=== PATIENT | male | born 1930 | race Caucasian/White ===

== ENCOUNTER 2018-09-26 08:55 | Day surgery (SDC) | payer MEDICARE, BC ==
[~2018-09-26] VITALS: Ht 182.9 cm; Wt 107.5 kg
[2018-09-26 09:49] LABS: ANION GAP 16.3 mmol/L (8-16); CALCIUM 7.7 mg/dL (8.5-10.1); CARBON DIOXIDE 21.3 mmol/L (21.0-32.0); CREATININE - SERUM 5.1 mg/dL (0.6-1.3); POTASSIUM - SERUM 4.6 mmol/L (3.5-5.1)
[2018-09-26 09:50] LABS: BASOPHILS 0.5 % (0-2); HEMATOCRIT 27.5 % (42.0-54.0); HEMOGLOBIN 8.6 g/dL (13.5-17.5); IMMATURE GRANULOCYTES 0.2 % (0-5); LYMPHOCYTES 20.2 % (15-50); MCH 30.4 pg (26.0-34.0); MCHC 31.3 g/dL (31.0-37.0); MCV 97.2 fL (80.0-100.0); MEAN PLATELET VOLUME 10.4 fL (7.4-10.4); MONOCYTES 6.6 % (2-11); NEUTROPHILS 68.5 % (40-80); PLATELET COUNT 91 10x3/uL (130-400); RBC 2.83 10x6/uL (4.20-6.10); RDW 14.8 % (11.5-14.5); WBC 6.5 10x3/uL (4.8-10.8)
[2018-09-26] MEDS ORDERED: COREG25 MG PO (10:28)
[2018-09-26] MEDS ORDERED: OMNICEF300 MG PO (10:28)
[2018-09-26] MEDS ORDERED: ZOCOR10 MG PO (10:43)
[2018-09-26] MEDS ORDERED: BAYER CHEWABLE81 MG PO (10:44)
[2018-09-26] MEDS ORDERED: FLUTICASONE PRO16 GM NASAL (10:45)
[2018-09-26] MEDS ORDERED: NORVASC5 MG PO (10:46)
[2018-09-26] MEDS ORDERED: ATIVAN1 MG PO (10:47)
[2018-09-26] MEDS ORDERED: LEVOTHYROXINE50 MCG PO (10:48)
[2018-09-26] MEDS ORDERED: SODIUM BICARBO325 MG PO (10:49)
[2018-09-26] MEDS ORDERED: COZAAR50 MG PO (10:50)
[2018-09-26] MEDS ORDERED: FOLIC ACID1 MG PO (10:52)
[2018-09-26] MEDS ORDERED: FERROUS SULFAT325 MG PO (10:52)
[2018-09-26] MEDS ORDERED: METOLAZONE2.5 MG PO (10:52)
[2018-09-26] MEDS ORDERED: XANAX0.5 MG PO (10:53)
[2018-09-26] MEDS ORDERED: LASIX80 MG PO (10:54)
[2018-09-26 10:56] VITALS: BMI 32.1
[2018-09-26 11:06] LABS: APTT 29.4 SECONDS (22.8-39.4)
[2018-09-26 11:39] LABS: INR 1.03 (0.85-1.17); PROTIME 13.4 SECONDS (11.6-15.0)
[2018-09-26 12:26] LABS: ANISOCYTOSIS OCC; PLATELET ESTIMATE DECREASED; ROULEAUX OCC
[2018-09-26 16:00] VITALS: BP 119/53
[2018-09-26 16:11] VITALS: BMI 32.1
--- NOTE | 2018-09-26 19:20 | NUR ---
PT RESTING COMFORTABLY IN BED, ELEVATED LT ARM ON PILLOW. PT DENIES ANY NEEDS AT THIS TIME. CALL LIGHT IN REACH, FAMILY AT BEDSIDE, NAD NOTED, WILL CONTINUE TO MONITOR.
--- NOTE | 2018-09-26 19:46 | NUR ---
PT RESTING IN BED. AROUSES TO PHYSICAL STIMULI. PT VERY [place]. LEFT ARM ELEVATED ON PILLOW, BRUISING NOTED, SWELLING NOTED. BRUIT AND THRILL NOTED. PT DENIES ANY NEEDS. NO S/S OF DISTRESS. PT BEDLOW AND CALL LIGHT IN REACH. PT ON 2L O2 NC. PLACED AN ICE PACK ONTO ARM FOR DISCOMFORT. PT DENIES ANY OTHER NEEDS. NAME AND DATE ON BOARD. WILL CPOC.
[2018-09-26 20:00] VITALS: BP 125/48
--- NOTE | 2018-09-27 | NUR ---
ASSISTED PT WITH GETTING READY FOR BED. REPOSITIONED IN BED. DENTURE CUP PROVIDED. LEFT ARM ELEVATED. BRUIT AND THRILL NOTED. PT WILL CALL FOR ASSIST WHEN NEEDED. WILL CPOC
[2018-09-27 00:18] VITALS: BP 152/63
--- NOTE | 2018-09-27 02:51 | NUR ---
ASSISTED PT WITH REPOSITIONING. LEFT ARM ELEVATED BRUIT AND THRILL NOTED. PT 3L O2 NC. PT DENIES ANY NEEDS. NO S/S OF DISTRESS. BEDLOW AND CALL LIGHT IN REACH. WILL CPOC
[2018-09-27 04:34] VITALS: BP 134/51
--- NOTE | 2018-09-27 04:41 | NUR ---
ASSISTED PT WITH GETTING DRESSED AND SITTING UP IN CHAIR. PT TOOK PILLS FROM HOME, NO PILL BOTTLES FOR NURSE TO GET NAMES. MEDICATIONS ALREADY PREPARED. EDUCATED PT ON RISK OF TAKING MEDICATIONS WITHOUT DOCTOR ORDERS. PT NOW IN CHAIR. HAS NO S/S OF DISTRESS. LEFT AVF BRUIT AND THRILL NOTED. WILL CPOC
--- NOTE | 2018-09-27 05:32 | NUR ---
PT SITTING UP IN CHAIR. DENIES ANY NEEDS. WILL CPOC
[2018-09-27 07:28] VITALS: Ht 182.9 cm; Wt 107.5 kg
[2018-09-27 07:41] VITALS: BP 104/50
--- NOTE | 2018-09-27 08:54 | NUR ---
PT RESTING IN BED, SHIFT ASSESSMENT PERFORMED. FAMILY AT BEDSIDE. DENIES NEEDS AT THIS TIME, WILL CONT TO FOLLOW POC
--- NOTE | 2018-09-27 11:16 | MORECARE ---
CASE MANAGEMENT DISCHARGE SUMMARY PATIENT: ADDISON HOOKER DEEPTI UNIT: [id number] ADM DATE: 09/26/18 AGE: 88 : [birth year] SEX: M ROOM/BED: D.2126 AUTHOR: ROBBY WALLACE PHYSICIAN: REFERRING PHYSICIAN: COREY VICTORIA MD DATE OF SERVICE: 09/27/18 Discharge Plan Patient Name: ADDISON HOOKER Facility: [facility]:[place] : 1930 Planned Disposition: Home Anticipated Discharge Date: 09/27/18 Discharge Date: Expected LOS: 1 Initial Reviewer: [email or web address] Initial Review Date: 09/27/2018 Generated: 09/27/18 12:16 pm External Providers External Provider: David Next Contact Date: 09/27/2018 Service Request Date: Service Type: Resolution: Reviewer: Comments: Patient Name: ADDISON HOOKER Page [id number] at 1116 All edits/amendments must be made on the electronic document DICTATION DATE: 09/27/18 1115 ASSOCIATE PROFESSOR PLANT PATHOLOGY: ISAAK 09/27/18 1115 RPT#: [id number] ME DATE: STATUS: [facility] [address] [place] [address] END OF REPORT
--- NOTE | 2018-09-27 11:27 | MORECARE ---
CASE MANAGEMENT DISCHARGE SUMMARY PATIENT: ADDISON HOOKER DEEPTI UNIT: [id number] ADM DATE: 09/26/18 AGE: 88 : [birth year] SEX: M ROOM/BED: D.2126 AUTHOR: ROBBY WALLACE PHYSICIAN: REFERRING PHYSICIAN: COREY VICTORIA MD DATE OF SERVICE: 09/27/18 Discharge Plan Patient Name: ADDISON HOOKER [facility] [facility] 1930 Planned Disposition: Home Anticipated Discharge Date: 09/27/18 Discharge Date: Expected LOS: 1 Initial Reviewer: [email or web address] Initial Review Date: 09/27/2018 Generated: 09/27/18 12:27 pm DCPIA - Discharge Planning Initial Assessment Updated by [email or web address]: Roland Mandel on 09/27/18 11:24 am * Is the patient Alert and Oriented? Yes * How many steps to enter\exit or inside your home? * PCP DR. FRANCA HECTOR * [facility] [place] * Preadmission Environment Home with Family * ADLs Independent * Equipment None * Other Equipment [facility] IN [place] - PREFERRED PROVIDER * List name and contact numbers for known caregivers / representatives who currently or will assist patient after discharge: ALAN HOOKER, SPOUSE, * Verbal permission to speak to the caregivers and representatives has been obtained from the patient. Yes * Community resources currently utilized None * Please name any agencies selected above. NONE * Additional services required to return to the preadmission environment? No * Can the patient safely return to the preadmission environment? Yes * Has this patient been hospitalized within the prior 30 days at any hospital? No External Providers External Provider: [facility] Next Contact Date: 09/27/2018 Service Request Date: Service Type: Resolution: Reviewer: Comments: Patient Name: ADDISON HOOKER Page [phone] at 1127 All edits/amendments must be made on the electronic document DICTATION DATE: 09/27/18 1127 MAMMALOGY TEACHER: ISAAK 09/27/18 1127 RPT#: [id number] DC DATE: STATUS: [facility] [address] [place] [address] END OF REPORT
[2018-09-27 11:36] VITALS: BP 94/43
--- NOTE | 2018-09-27 11:38 | MORECARE ---
CASE MANAGEMENT DISCHARGE SUMMARY PATIENT: ADDISON HOOKER UNIT: [id number] ADM DATE: 09/26/18 AGE: 88 : [birth year] SEX: M ROOM/BED: D.3256 AUTHOR: ROBBY WALLACE PHYSICIAN: REFERRING PHYSICIAN: COREY VICTORIA MD DATE OF SERVICE: 09/27/18 Discharge Plan Patient Name: ADDISON HOOKER Facility: [facility]:[place] : 1930 Planned Disposition: Home Anticipated Discharge Date: 09/27/18 Discharge Date: Expected LOS: 1 Initial Reviewer: [email or web address] Initial Review Date: 09/27/2018 Generated: 09/27/18 12:38 pm Comments DCP- Discharge Planning Updated by [email or web address]: Roland Mandel on 09/27/18 10:[address] Patient Name: ADDISON HOOKER Admission Status: Elective Accout number: [id number] Admission Date: 09-26-2018 : 1930 Admission Diagnosis: Attending: COREY VICTORIA Current LOS: 1 Anticipated DC Date: 09-27-2018 Planned Disposition: Home Primary Insurance: MEDICARE A & B Discharge Planning Comments: CM RECEIVED OXYGEN TESTING, PT 88% ON ROOM AIR AT REST WITH RECOVERY TO 92% ON 2LNC. CM MET WITH PT AND SPOUSE IN ROOM TO DISCUSS DISCHARGE PLANNING AND NEEDS. ADDISON HOOKER provided verbal consent to discuss current and ongoing needs with/in the presence of: SPOUSE, ALAN. PT REPORTS LIVING AT HOME INDEPENDENTLY WITH HIS . PT HAS NO MEDICAL EQUIPMENT AND NO OUTSIDE SERVICES ASSISTING IN THE HOME. CM DISCUSSED AVAILABILITY OF HOME HEALTH, REHAB SERVICES AND MEDICAL EQUIPMENT. PT WOULD LIKE OXYGEN FROM [facility] THAT IS WHO HIS USES. PT'S SPOUSE REPORTS IT IS [facility] IN [place]. PT FAMILY HERE TO DRIVE HOME TODAY AT DISCHARGE, PT DENIES FURTHER NEEDS. MEDICAL EQUIPMENT PROVIDER LISTING GIVEN, PT SIGNED CONSENT FOR [facility]. CM NOTIFIED ILA HOWARD WHO WILL SIGN OXYGEN ORDERS. CM CALLED [facility], , SPOKE TO CRISTOPHER WHO TOOK OXYGEN ORDER. CM FAXED OXYGEN ORDER TO [facility] AT [phone]. [facility] TO ARRANGE PORTABLE OXYGEN TO HOPITAL ROOM AND HOME OXYGEN AND NEBULIZER FOR HOME DELIVERY AFTER PT ARRIVES HOME TODAY. PORTABLE OXYGEN TO BE DELIVERED TO PT'S ROOM FOR DISCHARGE HOME TODAY BY ROXI. Piano Tuner: Roland Mandel DCPIA - Discharge Planning Initial Assessment Updated by [email or web address]: Roland Mandel on 09/27/18 11:24 am * Is the patient Alert and Oriented? Yes * How many steps to enter\exit or inside your home? * PCP DR. FRANCA HECTOR * [facility]acy [facility] [place] * Preadmission Environment Home with Family * ADLs Independent * Equipment None * Other Equipment [facility] IN [place] - PREFERRED PROVIDER * List name and contact numbers for known caregivers / representatives who currently or will assist patient after discharge: ALAN HOOKER, SPOUSE, * Verbal permission to speak to the caregivers and representatives has been obtained from the patient. Yes * Community resources currently utilized None * Please name any agencies selected above. NONE * Additional services required to return to the preadmission environment? No * Can the patient safely return to the preadmission environment? Yes * Has this patient been hospitalized within the prior 30 days at any hospital? No Coverage Notice Reviewer: [email or web address] - Roland Mandel Notice Issued Date-Time: 09/27/2018 9:55 Notice Type: Patient Choice Letter Notice Delivered To: Patient Relationship to Patient: Snorkelling Instructor Name: Delivery Method: HAND - Hand Delivered Siobhan Days: Prior Verbal Notification: Recipient Understood Notice: Yes Recipient Signature: Yes Med Rec Note Co-signed by Attending: Coverage Notice Comment: ROXI LORENZO Last DP export: 09/27/18 10:27 a Patient Name: ADDISON HOOKER Page [phone] at 1138 All edits/amendments must be made on the electronic document DICTATION DATE: 09/27/18 1138 BIT SHAVER: ISAAK 09/27/18 1138 RPT#: [id number] PA DATE: STATUS: REG [facility] [address] [place] [address] END OF REPORT
--- NOTE | 2018-09-27 15:27 | NUR ---
PT FAMILY STOPPED NURSE AND STATED THAT THEY WERE CONCERNED THAT NO ONE HAD BEEN IN TO SEE THE PT "ALL DAY" AND WANT TO KNOW IF THIS IS STANDARD PRACTICE. ADVISED FAMILY THAT THIS NURSE WAS PRESENT FOR MORNING MEDICATIONS AND BACK AGAIN TO ASSIST THE PT WITH ORDERING LUNCH. ALSO, THE DIGITAL STRATEGY SPECIALIST WAS PRESENT THIS AM AND AROUND 1100 TO TAKE VS. PT WAS ALSO SEEN MULTIPLE TIMES TODAY BY CASE MANAGEMENT TO GET HOME O2 STARTED. FAMILY STATES THAT DIGITAL STRATEGY SPECIALIST DID NOT COME TAKE ANY VITALS TODAY. SPOKE WITH DIGITAL STRATEGY SPECIALIST AND SHE STATES THAT ONE FAMILY MEMBER WAS ASLEEP ON THE FLOOR AND THE SECOND FAMILY MEMBER WAS ASLEEP ON THE BED WHEN SHE TOOK HIS VS. PT IS NOT RELIABLE TO AID IN THE CONFUSION. ALERTED ELECTRONIC PUBLISHER, ROMY MEZA OF THE SITUATION.
--- NOTE | 2018-09-27 16:22 | NUR ---
DISCHARGE INSTRUCTIONS REVIEWED WITH PT, ALL QUESTION ANSWERED. PIV REMOVED WITH CATHETER TIP INTACT. PT ASSISSTED TO FRONT OF HOSPITAL VIA WHEELCHAIR AND LEFT WITH FAMILY.
--- NOTE | 2018-09-27 16:31 | OP ---
PATIENT NAME: ADDISON HOOKER MEDICAL RECORD: [id number] :[birth year] LOCATION:[facility] ADMISSION DATE: SURGEON: TOMAS MOY MD DATE OF OPERATION: 09/26/2018 REFERRED BY: Corey Bolton MD PREOPERATIVE DIAGNOSIS: Chronic kidney disease V. POSTOPERATIVE DIAGNOSIS: Chronic kidney disease V. OPERATION PERFORMED: Implantation of Artegraft in the left upper extremity in a rainbow configuration from the brachial artery above the antecubital space to the basilic vein just distal to the axilla. SURGEON: Tomas Moy MD ANESTHESIA: General with LMA per SUPERVISOR PIPELINES. PREOPERATIVE NOTE: Mr. Hooker is an 88-year-old white male patient who has chronic renal insufficiency and is anticipated that he will require dialysis soon. He was referred by Dr. Bolton. He has very poor veins and I think at 88 he is a poor candidate for an AV fistula. I plan to implant an Artegraft. DESCRIPTION OF PROCEDURE: Under general anesthesia in supine position, the patient prepped and draped in a sterile manner. I examined him first with ultrasound and noted that there was suitable basilic vein in the arm upon which to land the proposed graft and the brachial artery was sizable in the arm all the way to the forearm. I elected on the rainbow configured brachiobasilic fistula or a graft. I made a vertical incision just below the axilla, directly over the basilic vein, exposed it and isolated a segment and controlled it with Silastic loops. An incision was made distally just above the antecubital space on the medial side. I exposed the brachial artery and controlled it with Silastic loops. The vein was opened and flushed proximally and distally with heparinized saline and Artegraft 40 cm long and 6 mm in diameter was prepared for use and rinsed with heparinized saline. It was then bevelled and anastomosed end-to-side to the vein with running 6-0 Prolene. The graft and vein were then flushed again with heparinized saline and clamped. The suture line was hemostatic. The graft was placed in a very very shallow subcutaneous tunnel and brought back to the brachial artery distally. The graft was again shortened and bevelled and the artery opened and flushed proximally and distally with heparinized saline and the anastomosis then performed with running 6-0 Prolene. When completed and the occluding loops and clamps were released, excellent flow was immediately established within the graft and there was preservation of pulsatile Doppler flow in the brachial artery distally and in the radial and ulnar arteries at the wrist. The patient's wounds were irrigated with saline. The vessels were treated during the procedure, off and on with papaverine. The wounds were infiltrated and irrigated with 0.25% Marcaine without epinephrine and closed with interrupted inverted 3-0 Vicryl and running intracuticular 4-0 Monocryl and Dermabond glue. They were dressed with Maxorb Ag, Tegaderm, and Cavilon skin prep. He was awakened and taken to the recovery room. OPERATIVE REPORT [id number] ADDISON HOOKER As I had determined preoperatively, I will keep the patient in overnight observation and anticipate he is going home tomorrow assuming there are no complications. I will see him back in my office in about a week or 10 days. I anticipate that his new graft can be used for dialysis if needed in 2 weeks. Blood loss was 5 cc. None replaced. Sponges, instruments, and needles were accounted for. No drain was used and no surgical specimen submitted for histopathology. TRANSINT:[id number] Voice Confirmation ID: [id number] DOCUMENT ID: [id number] TOMAS MOY MD at 1631 CC: COREY BOLTON MD [id number] DICTATION DATE: 09/26/18 1348 GEOLOGY PROFESSOR: 09/26/18 1426 [facility] 09/27/18 [id number] [place] [address]
== END 2018-09-27 16:26 | disposition home or self-care (01) ==
LOC: D.OPS 08:55 → D.M2 15:26 → D.OPS 09-27 16:26
PROVIDERS: Surgery; ATTEND Internal Medicine Nephrology
DX: N18.5 Chronic kidney disease, stage 5 (principal); Z01.812 Encounter for preprocedural laboratory examination